=== PATIENT | male | born 1985 ===

== ENCOUNTER 2017-08-13 09:00 | Emergency (ER) | payer OTHER ==
[2017-08-13] MEDS ORDERED: Diphtheria,Pertussis(Acell),Tetanus Vaccine 0.5 ML SDV IM ONE (09:50)
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
--- NOTE | 2017-08-13 13:19 | CR ---
Pelvis and right hip: AP view of the pelvis was obtained as well as AP and frog-leg lateral views of the right hip. Comparison: No prior study. Joint spaces within both hips are preserved. Sacroiliac joints are within normal limits. No fracture or other bony abnormality is seen. Impression: 1. Nothing acute is seen on AP pelvis or on two-view right hip exam. Diagnostic code #1
--- NOTE | 2017-08-13 13:19 | CR ---
Lumbar spine: AP and lateral views of the lumbar spine were obtained. Comparison: No previous study. Lucency is seen within the transverse process of L3 on the right side believed to be due to overlapping bowel gas. Pedicles as well as transverse and spinous processes are felt to be intact. Disc space narrowing is noted at L5-S1. Other disc spaces are maintained. Minimal endplate osteophytes are seen. Impression: 1. Disc space narrowing at L5-S1 possibly due to transitional segment. 2. Other incidental findings. Nothing acute is seen. Diagnostic code #2
--- NOTE | 2017-08-13 13:19 | CR ---
Chest: PA view of the chest was obtained. Comparison: No prior chest x-ray. Heart size and mediastinum are normal. Lungs are clear. Bony structures are grossly intact. Impression: 1. Nothing acute is seen on PA chest x-ray. Diagnostic code #1
== END 2017-08-13 11:10 | disposition home or self-care (01) ==
LOC: JD.ED 09:00
DX: S39.012A Strain of muscle, fascia and tendon of lower back, initial encounter (principal); S70.01XA Contusion of right hip, initial encounter; F17.210 Nicotine dependence, cigarettes, uncomplicated; Z23 Encounter for immunization; V43.53XA Car driver injured in collision with pick-up truck in traffic accident, initial encounter
CPT/HCPCS: 36415; 71045; 72100; 73502; 85025; 90471; 90715; 99285; G0390; 99284